=== PATIENT | male | born 1980 | race Caucasian/White ===

== ENCOUNTER → 2020-03-10 | Outpatient (CLI) | payer OTHER ==
[~2020-03-10] MED LIST: DOXYCYCLINE HY100 MG PO; IBUPROFEN600 MG PO
== END ==
LOC: KOH-I 10:53
DX: R19.09 Other intra-abdominal and pelvic swelling, mass and lump (principal); N20.0 Calculus of kidney; N32.89 Other specified disorders of bladder
CPT/HCPCS: 74176

== ENCOUNTER → 2020-03-17 | Outpatient (CLI) | payer OTHER | LOC: KOH-I 16:01 | DX: M25.531 Pain in right wrist (principal) | CPT/HCPCS: 73110 ==

== ENCOUNTER → 2021-01-09 | Outpatient (CLI) | payer OTHER | LOC: HEART 5 09:25 | DX: J98.01 Acute bronchospasm (principal) | CPT/HCPCS: 94060; 94729 ==